=== PATIENT | female | born 1935 | race Caucasian/White ===

== ENCOUNTER 2024-06-27 09:03 | Emergency (ER) | payer OTHER ==
[~2024-06-27] VITALS: Ht 157.5 cm; Wt 45.5 kg
--- NOTE | 2024-06-27 09:31 | ED.PDOC ---
Back pain HPI HPI Comments 89-year-old female brought in by EMS presents with a chief complaint of lumbar back pain s/p fall x . Patient is poor historian and family is poor historians according to EMS. Patient had a mechanical fall on while attempting to clean her room and denies any LOC. Patients fall was unwitnessed however and patient is hazy on the details of what actually happened. Patient has chronic back pain and rates her pain a 10/10 at this time. Patient endorsed to EMS that she took a [place] 325 x 1 hour prior to their arrival. 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 Hx Family History Family History: Reviewed,noncontributory to illness Social History Smoker: Non-Smoker Alcohol: Denies ETOH Use Drugs: Denies Drug Use Lives In: Home Constitutional: denies: chills, diaphoresis, fatigue, fever, malaise, sweats, weakness, others EENTM: denies: blurred vision, double vision, ear bleeding, ear discharge, ear drainage, ear pain, ear ringing, eye pain, eye redness, hearing loss, mouth pain, mouth swelling, nasal discharge, nose bleeding, nose congestion, nose pain, photophobia, tearing, throat pain, throat swelling, voice changes, others Respiratory: denies: cough, hemoptysis, orthopnea, SOB at rest, shortness of breath, SOB with excertion, stridor, wheezing, others Cardiovascular: denies: chest pain, dizzy spells, diaphoresis, Dyspnea on exertion, edema, irregular heart beat, left arm pain, lightheadedness, palpitations, PND, syncope, others Gastrointestinal: denies: abdomen distended, abdominal pain, blood streaked bowels, constipated, diarrhea, dysphagia, difficulty swallowing, hematemesis, melena, nausea, poor appetite, poor fluid intake, rectal bleeding, rectal pain, vomiting, others Genitourinary: denies: abnormal vagina bleeding, burning, dyspareunia, dysuria, flank pain, frequency, hematuria, incontinence, pain, , vagina disch arge, urgency, others Neurological: denies: dizziness, fainting, headache, left sided numbness, left sided weakness, numbness, paresthesia, pre-existing deficit, right sided numbness, right sided weakness, seizure, speech problems, tingling, tremors, weakness, others Musculoskeletal: reports: back pain; denies: gout, joint pain, joint swelling, muscle pain, muscle stiffness, neck pain, others Integumetry: denies: bruises, change in color, change in hair/nails, dryness, laceration, lesions, lumps, rash, wounds, others Allergic/Immunocompromised: denies: Difficulty Healing, Frequent Infections, Hives, Itching, others Hematologic/Lymphatic: denies: anemia, blood clots, easy bleeding, easy bruising, swollen glands, others Endocrine: denies: excessive hunger, excessive sweating, excessive thirst, excessive urination, flushing, intolerance to cold, intolerance to heat, unexplained weight gain, unexplained weight loss, others Psychiatric: denies: anxiety, bipolar disorder, depression, hopeless, panic disorder, schizophrenia, sleepless, suicidal, others All Other Systems: Reviewed and Negative Physical Exam General Appearance: No Apparent Distress, Normal HEENT: Normal ENT Inspection, Pharynx Normal, TMs Normal Neck: Full Range of Motion, Non-Tender, Normal, Normal Inspection Respiratory: Chest Non-Tender, Lungs Clear, No Accessory Muscle Use, No Respir atory Distress, Normal Breath Sounds Cardiovascular: No Edema, No JVD, No Murmur, No Gallop, Normal Peripheral Pulses, Regular Rate/Rhythm Breast Exam: Deferred Gastrointestinal: No Organomegaly, Non Tender, No Pulsatile Mass, Normal Bowel Sounds, Soft Genitalia: Deferred Pelvic: Deferred Rectal: Deferred Extremities: No calf tenderness, Normal capillary refill, Normal inspection, No pedal edema, Tender (DIFFUSE LUMBAR SPINE) Musculoskeletal : Apperance: Normal Neurologic: Alert, computer aide II-XII nml as Tested, No Motor Deficits, Normal Affect, Normal Mood, No Sensory Deficits Cerebellar Function: Normal Reflexes: Normal Skin: Dry, Normal Color, Warm Lymphatic: No Adenopathy Was a procedure done? Was a procedure done?: No Back Pain Differential Dx Differential Diagnosis: Other Other Differential Diagnosis LUMBAR FRACTURE, SPINAL FRACTURES, INTRACRANIAL HEMORRHAGE, BACK SPRAIN X-Ray, Labs, Meds, VS Vital Signs Date Time Temp Pulse Resp B/P (MAP) Pulse Ox O2 Delivery O2 Flow Rate FiO2 06/27/24 10:20 98.6 88 18 112/70 (84) 97 98.6 06/27/24 10:20 88 18 97 Nasal Cannula* 2 28 06/27/24 09:14 98.5 88 18 153/88 (109) 98 Current Medications Medications (Trade) Dose Ordered Sig/Blair Route Start Time Stop Time Status Last Admin Acetaminophen/ Hydrocodone Bitart ([place] 5/325MG Tab) 1 tab ONCE ONCE PO 06/27/24 10:30 06/27/24 10:31 DC 06/27/24 10:40 PATIENT: KULDEEP RICK ACCT: [id number] UNIT: [id number] : 1935 LOC: ER ROOM / BED: / AGE / SEX: 89 / F ADM STATUS: REG ER SERVICE [id number] ORDERING PHYSICIAN: RAFAEL ARGUETA MD PROCEDURE(s): LS2CT - LS SPINE WO CONTRAST REASON: ro fracture ORDER NUMBER(s): [id number], ACCESSION NUMBER(s): [id number] EXAM: CT Lumbar Spine Without Intravenous Contrast CLINICAL INDICATION: ro fracture TECHNIQUE: Axial computed tomography images of the lumbar spine without intravenous contrast. This CT exam was performed using one or more of the following dose reduction techniques: automated exposure control, adjustment of the mA and/or kV according to patient size, and/or use of iterative reconstruction technique. 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 Vertebral augmentation of L3 vertebral body. No acute fracture. DISCS/SPINAL CANAL/NEURAL FORAMINA: Degenerative disc disease throughout the lumbar spine. SOFT TISSUES: Unremarkable. VASCULATURE: Scattered calcified atherosclerotic disease of aorta. OTHER FINDINGS: . . . . .. IMPRESSION: 1. No acute fracture. 2. Degenerative changes lumbar spine as described. ATED BY: TRINITY URIBE MD DICTATED DATE/TIME: 06/27/24 1006 SIGNED BY: TRINITY URIBE MD SIGNED DATE/TIME: 06/27/24 1006 ATIENT: DENIA RICKT: [id number] UNIT: [id number] : 1935 LOC: ER ROOM / BED: / AGE / SEX: 89 / F ADM STATUS: REG ER SERVICE 0932 ORDERING PHYSICIAN: RAFAEL ARGUETA MD PROCEDURE(s): HWOCT - HEAD WITHOUT CONTRAST REASON: ro head bleed ORDER NUMBER(s): [id number], ACCESSION NUMBER(s): [id number] EXAM: CT HEAD WITHOUT CONTRAST INDICATION: ro head bleed TECHNIQUE: CT of the head without intravenous contrast. Coronal and sagittal reformatted images are submitted. Radiation Dose : 1. Head: CT Dose: CTDI volume is 53.17 mGy. Dose-length product is 755.91 mGy*cm The dose indicators for CT are the volume Computed Tomography (CT) Dose Index (CTDIvol) and the Dose Length Product (DLP), and are measured in units of mGy and mGy-cm, respectively. These indicators are not patient dose, but values generated from the CT scanner acquisition factors. The report includes radiation exposure data for exposures received during this examination. All CT scans at this medical facility are performed using dose modulation techniques as appropriate to a performed exam including the following: Automated exposure control was utilized; adjustment of the MA and/or KV according to patient size; and use of iterative reconstruction technique. COMPARISON: None FINDINGS: There is no evidence of acute intracranial hemorrhage, extra-axial collection, mass effect, midline shift, herniation or hydrocephalus. There are periventricular and subcortical hypodensities, nonspecific, but likely reflecting sequelae of chronic microvascular ischemic changes. The ventricles, sulci and cisterns are age appropriate. The moreno-white differentiation is intact. The visualized paranasal sinuses and mastoid air cells are clear. No depressed calvarial fracture. The surrounding soft tissues are unremarkable. IMPRESSION: 1. No evidence of acute intracranial abnormality. ATED BY: DEBBIE HAHN MD DICTATED DATE/TIME: 06/27/24 1002 SIGNED BY: DEBBIE HAHN MD SIGNED DATE/TIME: 06/27/24 1002 89-year-old female presents here status post questionable fall, and lumbar pain. She states she was making her bed when she felt a snap to her lumbar back. On my examination she is tender to the lumbar spine therefore a CT scan of the lumbar spine has been done with no evidence of fracture. Family did find her on the floor within the last 1 or 2 days. Patient states she fell asleep in the rocker does not remember falling or slipping. There was also questionable altered mental status encephalopathy per the family. On my evaluation patient seems awake alert and oriented to person place and time. CT scan of the brain has been done with no evidence of acute hemorrhage. I have given her [place] for her back pain. I will be discharging her home. Advised to follow up with the PCP in 2-3 days and return to the ER if symptoms worsen or persist. Time of 1ST Reevaluation: 09:56 Reevaluation 1ST: Unchanged Patient Education/Counseling: Diagnosis, Treatment, Prognosis Family Education/Counseling: Diagnosis, Treatment, Prognosis Departure 1 Departure Time of Disposition: 10:30 Impression: Primary Impression: Lumbar sprain Qualified Codes: S33.5XXA - Sprain of ligaments of lumbar spine, initial encounter Additional Impressions: Fall Qualified Codes: W19.XXXA - Unspecified fall, initial encounter Acute encephalopathy Disposition: 01 HOME / SELF CARE / HOMELESS Condition: Stable Additional Instructions: Follow up with your primary care physician in 2 days. Return to the ER if symptoms worsen or persist. Critical Care Note Critical Care Time?: No Stability Stability form required: No I personally scribed for RAFAEL ARGUETA MD ([email or web address]) on 06/27/24 at 09:31. Electronically submitted by Wilian Garber ([email or web address]). I personally scribed for RAFAEL ARGUETA MD ([email or web address]) on 06/27/24 at 10:30. Electronically submitted by Wilian Garber ([email or web address]). I personally scribed for RAFAEL ARGUETA MD ([email or web address]) on 06/27/24 at 10:31. Electronically submitted by Wilian Garber ([email or web address]). RAFAEL ARGEUTA MD Jun 27, 2024 09:31
--- NOTE | 2024-06-27 10:04 | DVH ---
EXAM: CT HEAD WITHOUT CONTRAST INDICATION: ro head bleed TECHNIQUE: CT of the head without intravenous contrast. Coronal and sagittal reformatted images are submitted. Radiation Dose : 1. Head: CT Dose: CTDI volume is 53.17 mGy. Dose-length product is 755.91 mGy*cm The dose indicators for CT are the volume Computed Tomography (CT) Dose Index (CTDIvol) and the Dose Length Product (DLP), and are measured in units of mGy and mGy-cm, respectively. These indicators are not patient dose, but values generated from the CT scanner acquisition factors. The report includes radiation exposure data for exposures received during this examination. All CT scans at this medical facility are performed using dose modulation techniques as appropriate to a performed exam including the following: Automated exposure control was utilized; adjustment of the MA and/or KV according to patient size; and use of iterative reconstruction technique. COMPARISON: None FINDINGS: There is no evidence of acute intracranial hemorrhage, extra-axial collection, mass effect, midline s hift, herniation or hydrocephalus. There are periventricular and subcortical hypodensities, nonspecific, but likely reflecting sequelae of chronic microvascular ischemic changes. The ventricles, sulci and cisterns are age appropriate. The moreno-white differentiation is intact. The visualized paranasal sinuses and mastoid air cells are clear. No depressed calvarial fracture. The surrounding soft tissues are unremarkable. IMPRESSION: 1. No evidence of acute intracranial abnormality.
--- NOTE | 2024-06-27 10:08 | DVH ---
EXAM: CT Lumbar Spine Without Intravenous Contrast CLINICAL INDICATION: ro fracture TECHNIQUE: Axial computed tomography images of the lumbar spine without intravenous contrast. This CT exam was performed using one or more of the following dose reduction techniques: automated exposu re control, adjustment of the mA and/or kV according to patient size, and/or use of iterative reconst ruction technique. 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 Vertebral augmentation of L3 vertebral body. No acute fracture. DISCS/SPINAL CANAL/NEURAL FORAMINA: Degenerative disc disease throughout the lumbar spine. SOFT TISSUES: Unremarkable. VASCULATURE: Scattered calcified atherosclerotic disease of aorta. OTHER FINDINGS: . . . . .. IMPRESSION: 1. No acute fracture. 2. Degenerative changes lumbar spine as described.
[2024-06-27 10:20] VITALS: PULSE 88; RESP 18; O2SAT 97
[2024-06-27] MEDS: HYDROcodone-ACET 5/325MG TAB PO ONE (10:40)
[2024-06-27 11:52] VITALS: BP 147/82; PULSE 82; RESP 18; TEMP 97.8; O2SAT 98
== END 2024-06-27 11:55 | disposition home or self-care (01) ==
LOC: ER 09:03 → EDBD 09:03 → ER 11:55
DX: S33.5XXA Sprain of ligaments of lumbar spine, initial encounter (principal); R51.9 Headache, unspecified; G93.40 Encephalopathy, unspecified; J45.909 Unspecified asthma, uncomplicated; W18.39XA Other fall on same level, initial encounter; Y93.9 Activity, unspecified; Y92.89 Other specified places as the place of occurrence of the external cause; Y99.8 Other external cause status
CPT/HCPCS: 70450; 72131